=== PATIENT | female | born 1960 ===

== ENCOUNTER 2025-04-20 01:46 | Outpatient (CLI) | payer MEDICAID, SELFPAY ==
--- NOTE | 2025-04-20 06:45 | DI.RAD_ITS ---
Exam(s) XR FOOT LT COMPLETE EXAM: XR FOOT LT COMPLETE CLINICAL HISTORY: Left foot pain,m79.672. TECHNIQUE: 2D digital imaging was performed of the left foot. Three images were obtained. AP, oblique and lateral views were obtained. COMPARISON: CR XR FOOT COMPLETE MIN 3V LT from 11/11/2024 CR XR ANKLE COMPLETE MIN 3V LT from 11/11/2024 FINDINGS: BONES: The curvilinear density adjacent to the plantar aspect of the cuboid is again seen. No bony destructive lesion is seen. JOINTS: No dislocation present. The joint spaces are well maintained. SOFT TISSUE: Dystrophic calcifications associated with the Achilles tendon in the plantar fascia are again seen. IMPRESSION: 1. Stable appearance of the left foot. 2. Stable soft tissue calcification adjacent to the plantar aspect of the cuboid. 3. No evidence of a healing fracture is seen. DATA REPOSITORY: RADIATION DOSE DELIVERED:
== END 2025-04-20 02:06 ==
LOC: DI 01:47
PROVIDERS: PCP Internal Medicine; Visit Provider Podiatrist
DX: M79.672 Pain in left foot (principal)
CPT/HCPCS: 73630